=== PATIENT | male | born 1960 | race Caucasian/White ===

== ENCOUNTER → 2018-06-02 | Outpatient (CLI) | payer OTHER ==
[~2018-06-02] MED LIST: ATOR20 PO; FINA5 PO; Humalog100 UNIT/1 SC; INSULANPEN SC; IRBE75 PO; TAMS.4ER PO
== END ==
LOC: LAB 14:12 → LAB SHORT 14:12
DX: E11.65 Type 2 diabetes mellitus with hyperglycemia (principal)
CPT/HCPCS: 82043

== ENCOUNTER → 2019-10-15 | Outpatient (CLI) | payer OTHER | END | disposition home or self-care (01) | LOC: LAB SHORT 14:54 → LAB EV 14:54 | DX: R42 Dizziness and giddiness (principal) | CPT/HCPCS: 84443 ==

== ENCOUNTER → 2020-02-10 | Outpatient (CLI) | payer OTHER | END | disposition home or self-care (01) | LOC: LAB SHORT 07:00 → LAB 07:00 | DX: E11.65 Type 2 diabetes mellitus with hyperglycemia (principal) | CPT/HCPCS: 82043 ==

== ENCOUNTER 2022-03-14 11:20 | Emergency (ER) | payer OTHER ==
[~2022-03-14] VITALS: Ht 185.4 cm; Wt 145.2 kg
[2022-03-14 12:45] LABS: Source, Urine Foley catheter
[2022-03-14 12:51] LABS: Appearance, Urine Hazy (Clear); Bilirubin, Urine Neg (Neg); Blood, Urine 5+ (Neg); Color, Urine Yellow (P-Yellow); Glucose Qualitative, Urine Neg (Neg); Ketones, Urine Neg (Neg); Leukocyte Esterase, Urine 1+ (Neg); Nitrite, Urine Neg (Neg); Protein, Urine 3+ (Neg); Urobilinogen, Urine NORM (Normal)
[2022-03-14 13:08] LABS: Red Blood Cells, Urine 50-100 /hpf (0-2)
[2022-03-14 13:09] LABS: Bacteria Mod /hpf; Renal Epithelial Rare /hpf (0-Rare); Squamous Epithelial Cells Rare /hpf (Few)
[2022-03-14] MEDS ORDERED: CEPH500 PO (13:21)
== END 2022-03-14 13:55 | disposition home or self-care (01) ==
LOC: ER 11:20
PROVIDERS: Physician Assistant
DX: R33.9 Retention of urine, unspecified (principal); E11.9 Type 2 diabetes mellitus without complications; I10 Essential (primary) hypertension; Z79.899 Other long term (current) drug therapy; Z79.4 Long term (current) use of insulin
CPT/HCPCS: 51702; 81001